=== PATIENT | male | born 1945 | race Caucasian/White ===

== ENCOUNTER 2018-06-29 12:15 | Inpatient (IN) | payer OTHER, BC ==
--- NOTE | 2018-06-29 12:46 | EDPHY ---
H & P Stated Complaint: SOB for 1.5 weak with intermittent CP Time Seen by Provider: 06/29/18 12:40 - Medical/Surgical History Hx Asthma: No Hx Chronic Respiratory Disease: No Hx Diabetes: No Hx Cardiac Disease: Yes Hx Renal Disease: No Hx Cirrhosis: No Hx Alcoholism: No Hx HIV/AIDS: No Hx Splenectomy or Spleen Trauma: No Other PMH: DM, hyperlipidemia, CAD - Social History Smoking Status: Never smoked Constitutional: Initial Vital Signs Temperature (C) 36.6 C 06/29/18 12:19 Heart Rate 84 06/29/18 12:19 Respiratory Rate 18 06/29/18 12:19 Blood Pressure 146/72 H 06/29/18 12:19 O2 Sat (%) 95 06/29/18 12:19 O2 Delivery Mode Room Air Allergies/Adverse Reactions: Sulfa (Sulfonamide Antibiotics) Allergy (Verified 06/29/18 12:18) tetracycline [Tetracycline] Allergy (Verified 06/29/18 12:18) contrast Allergy (Uncoded 11/16/13 09:02) Home Medications: Medication Instructions Recorded AMOXICILLIN 06/29/18 Atorvastatin Calcium 06/29/18 Insulin Regular, Human 06/29/18 Quinapril HCl 06/29/18 Medical Decision Making - Diagnostics Imaging Results: Imaging Impressions Chest X-Ray 06/29/18 12:49 Impression: Features most suggestive of congestive heart failure with cardiogenic pulmonary edema. Imaging: I viewed and interpreted images myself ED Course/Re-evaluation: CHIEF COMPLAINT: Dyspnea HISTORY OF PRESENT ILLNESS: This patient is a 72 year old male with history of CAD, hyperlipidemia, and diabetes mellitus who has undergone prior cardiac catheterization in 2013. He complains of 10 days of worsening dyspnea with exertion. He is generally very active and goes jogging daily. Over the past 10 days, he states he cannot even walk without having to sit and recover, which is very unusual for him. He endorses "pushback" from his body when he tries to exert himself even mildly. He denies any sharp chest pains and is unable to articulate exactly what he means by "pushback", but does admit this is a sensation of discomfort, particularly in his chest. Last night, he had difficulty sleeping due to his dyspnea and discomfort, and he was diaphoretic at that time. He endorses history of non-obstructive coronary artery disease and underwent cardiac catheterization in November,, with Dr. Prasad, survey engineer. He did not have any stents placed at that time. The patient is currently symptom free and denies any shortness of breath or chest discomfort. No fever, nausea, headache, diarrhea, urinary complaints, or other associated symptoms. REVIEW OF SYSTEMS: A comprehensive 10 system review of systems is otherwise negative aside from elements mentioned in the history of present illness and medical decision making. PHYSICAL EXAM: HR, BP, O2 Sat, RR. Temp noted General Appearance: Alert, well hydrated, appropriate, and non-toxic appearing. Head: Atraumatic without scalp tenderness or obvious injury Eyes: Pupils equal, round, reactive to light and accommodation, EOMI, no trauma , no injection. Ears: Clear bilaterally, no perforation, normal landmarks Nose: Atraumatic, no rhinorrhea, clear. Throat: There is no erythema or exudates, no lesions, normal tonsils, mucus membranes moist. Neck: Supple, nontender, no lymphadenopathy. Respiratory: No retractions, no distress, no wheezes, and no accessory muscle use. Lungs are clear to auscultation bilaterally. Cardiovascular: Regular rate and rhythm, no murmurs, rubs, or gallops. Bilateral carotid, radial, dorsalis pedis, and posterior tibial pulses intact. Good capillary refill all extremities. Gastrointestinal: Abdomen is soft, nontender, non-distended. Musculoskeletal: Normal active ROM of all extremities, atraumatic. Neurological: Alert, appropriate, and interactive. Nonfocal neuro exam. Skin: No rashes, good turgor, no nodules on palpation. Past medical history: CAD s/p cardiac catheterization. Hyperlipidemia. Diabetes mellitus. Chronotropic incompetence. Past surgical history: Cardiac catheterization 11/2013, no stents placed. Family history: Noncontributory. Social history: . Lives in [place]. Retired. 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 DIAGNOSTICS/PROCEDURES/CRITICAL CARE TIME: The 12 lead EKG was interpreted by myself. Sinus rhythm. ST elevation in V3-V4, inverted T waves. See hard copy and/or "tracemaster" electronic copy for interpretation. DIFFERENTIAL DIAGNOSIS: The differential diagnosis for the patient's chest pain included but was not limited to myocardial ischemia, pulmonary embolus, chest wall pain, pleural inflammation, and pulmonary infectious causes. MEDICAL DECISION MAKING: This patient is a 72 y/o male with history of CAD, hyperlipidemia, and diabetes mellitus who presents with 10 day history of worsening exertional shortness of breath. He endorses an associated sensation of "pushback" in his body and particularly his chest, but he is reticent to describe this as "pain". Bedside EKG completed on arrival. 12:41 Reviewed bedside EKG. See interpretation above, evidence of ST elevation representing possible acute injury. Plan for labs including CBC, chemistries, troponin, d-dimer. Plan for chest x-ray. 12:47 Patient's history is suspicious for unstable angina, EKG shows evidence of possible ischemia. Plan to consult with cardiology. POC troponin pending. No old EKG is available in our system so we will request prior records from the [facility]. Plan to administer 324mg PO ASA. 12:50 Reviewed prior EKG from 11/16/2013. EKG is significantly changed from this. 13:04 POC Troponin elevated at 3.16. Plan to consult with survey engineer semiconductor packages sealer. As patient is currently completely asymptomatic, he does not meet criteria for a cardiac alert, but I suspect that we will consult with interventional cardiology as well following our initial cardiology consult. 13:[address] Mars, survey engineer. 13:11 Dr. Sevilla, data collection technician, is present in the emergency department. He will evaluate the patient now. He has reviewed the patient's EKG and agrees there is evidence of acute injury. 13:20 Reviewed chest x-ray. Evidence of possible CHF vs. cardiogenic pulmonary edema. Radiologist report concurs. Reviewed remaining laboratory studies. D-dimer, BNP elevated. 13:25 Dr. Sevilla with take the patient to the production laborer at this time. - Data Points Laboratory Results: Laboratory Results 06/29/18 12:50 06/29/18 12:50 06/29/18 06/29/18 06/29/18 12:55 12:50 12:50 WBC RBC Hgb Hct MCV MCH MCHC RDW Plt Count MPV Neut % (Auto) Lymph % (Auto) [place] % (Auto) Eos % (Auto) Baso % (Auto) Nucleat RBC Rel Count Absolute Neuts (auto) Absolute Lymphs (auto) Absolute Monos (auto) Absolute Eos (auto) Absolute Basos (auto) Absolute Nucleated RBC Immature Gran % Immature Gran # D-Dimer 2.65 ug/mLFEU H ug/mLFEU (0.00-0.50) Sodium 134 mEq/L L mEq/L (135-145) Potassium 5.3 mEq/L H mEq/L (3.3-5.0) Chloride 102 mEq/L mEq/L (97-110) Carbon Dioxide 26 mEq/l mEq/l (22-31) Anion Gap 6 mEq/L L mEq/L (8-16) BUN 24 mg/dL H mg/dL (7-23) Creatinine 0.9 mg/dL mg/dL (0.7-1.3) Estimated GFR > 60 Glucose 187 mg/dL H mg/dL (70-100) Calcium 8.3 mg/dL L mg/dL (8.5-10.4) POC Troponin I 3.16 ng/mL H ng/mL (0.00-0.08) NT-Pro-B Natriuret Pep 3790 pg/mL H pg/mL (0-125) 06/29/18 12:50 WBC 4.83 10^3/uL 10^3/uL (3.80-9.50) RBC 3.84 10^6/uL L 10^6/uL (4.40-6.38) Hgb 12.2 g/dL L g/dL (13.7-17.5) Hct 36.3 % L % (40.0-51.0) MCV 94.5 fL fL (81.5-99.8) MCH 31.8 pg pg (27.9-34.1) MCHC 33.6 g/dL g/dL (32.4-36.7) RDW 12.6 % % (11.5-15.2) Plt Count 272 10^3/uL 10^3/uL (150-400) MPV 11.1 fL fL (8.7-11.7) Neut % (Auto) 62.9 % % (39.3-74.2) Lymph % (Auto) 22.4 % % (15.0-45.0) [place] % (Auto) 11.4 % % (4.5-13.0) Eos % (Auto) 2.5 % % (0.6-7.6) Baso % (Auto) 0.4 % % (0.3-1.7) Nucleat RBC Rel Count 0.0 % % (0.0-0.2) Absolute Neuts (auto) 3.04 10^3/uL 10^3/uL (1.70-6.50) Absolute Lymphs (auto) 1.08 10^3/uL 10^3/uL (1.00-3.00) Absolute Monos (auto) 0.55 10^3/uL 10^3/uL (0.30-0.80) Absolute Eos (auto) 0.12 10^3/uL 10^3/uL (0.03-0.40) Absolute Basos (auto) 0.02 10^3/uL 10^3/uL (0.02-0.10) Absolute Nucleated RBC 0.00 10^3/uL 10^3/uL (0-0.01) Immature Gran % 0.4 % % (0.0-1.1) Immature Gran # 0.02 10^3/uL 10^3/uL (0.00-0.10) D-Dimer Sodium Potassium Chloride Carbon Dioxide Anion Gap BUN Creatinine Estimated GFR Glucose Calcium POC Troponin I NT-Pro-B Natriuret Pep Medications Given: Discontinued Medications Aspirin (Aspirin) 324 mg PO EDNOW ONE Stop: 06/29/18 12:50 Last Admin: 06/29/18 12:59 Dose: 324 mg Point of Care Test Results: Chemistry 06/29/18 12:55 POC Troponin I 3.16 ng/mL H ng/mL (0.00-0.08) Departure - Departure Disposition: [facility] Inpatient Acute Clinical Impression: Acute coronary syndrome STEMI (ST elevation myocardial infarction) Qualifiers: Involved coronary artery: unspecified coronary artery Qualified Code(s): I21.3 - ST elevation (STEMI) myocardial infarction of unspecified site Dyspnea Qualifiers: Dyspnea type: dyspnea on exertion Qualified Code(s): R06.09 - Other forms of dyspnea Condition: Fair Referrals: Ildefonso Rodriguez MD [Primary Care Provider] - As per Instructions Kris Mars MD [Medical Doctor] - As per Instructions Report Scribed for: Wilmar Albrecht Report Scribed by: Adriana Mccarthy Date of Report: 06/29/18 Time of Report: 13:28
[2018-06-29] MEDS ORDERED: ASPIRIN 81 MG CHEWABLE TAB PO ONE (12:49)
[2018-06-29 12:59] LABS: PLATELET COUNT 272 10^3/uL (150-400)
[2018-06-29] MEDS ORDERED: LIDOCAINE 1% 300 MG/30 ML SDV ONE (13:21)
[2018-06-29] MEDS ORDERED: fentaNYL 100 MCG/2 ML INJ ONE (13:22)
[2018-06-29] MEDS ORDERED: MIDAZOLAM 2 MG/2 ML VIAL ONE (13:22)
[2018-06-29] MEDS ORDERED: methylPREDNISolone SOD SUCC 125 MG/2 ML VIAL ONE (13:22)
[2018-06-29] MEDS ORDERED: IOPAMIDOL (ISOVUE-370) 150 ML BTL IV ONE ×2 (13:23→15:32)
[2018-06-29] MEDS ORDERED: FAMOTIDINE 20 MG/NACL/50 ML BAG IV ONE (13:23)
[2018-06-29] MEDS ORDERED: EPINEPHrine 1 MG/10 ML SYR IVP ONE (13:23)
[2018-06-29] MEDS ORDERED: NITROGLYCERIN 1,500 MCG/15 ML VIAL MISC ONE (14:03)
[2018-06-29] MEDS ORDERED: BIVALIRUDIN 250 MG/5 ML VIAL IV ONE (14:22)
--- NOTE | 2018-06-29 14:31 | CPEKG ---
Test Reason : OPEN Blood Pressure : / mmHG Vent. Rate : 078 BPM Atrial Rate : 078 BPM P-R Int : 173 ms QRS Dur : 082 ms QT Int : 377 ms P-R-T Axes : 027 -09 083 degrees QTc Int : 430 ms Sinus rhythm Left atrial enlargement Anteroseptal infarct Lateral leads are also involved Confirmed by Wilmar Albrecht ([id number]), multimedia editor Nemesio Helms ([id number]) on 06/29/2018 2:30:20 PM Referred By: Confirmed By:Wilmar Albrecht
--- NOTE | 2018-06-29 14:52 | PDPROPOC ---
Sedation Plan of Care Sedation Plan of Care: vital signs stable, mental status noted, patient educated of risks, benefits, alternatives, patient can tolerate sedation ASA Classification: ASA 4 Planned drugs: fentanyl, midazolam Mallampati Score: Class 2 Mallampati Reference Image: Patient passed 3-3-2 rule?: Yes
--- NOTE | 2018-06-29 14:52 | PDDXCAT ---
Diagnostic Cath Note - . Date: 06/29/18 Blue Line Operator: Roel Indication: CCC Class III and IV angina on medical treatment - Procedure Access: right groin Procedure: left heart catheterization Patient Problems: Problems Problem Status Onset Acute coronary syndrome Acute Dyspnea Acute STEMI (ST elevation myocardial infarction) Acute
--- NOTE | 2018-06-29 14:53 | PDHPUP ---
History & Physical Update H&P update statement: This history and physical update is based on an assessment of the patient which was completed after admission or registration (within 24 hours), but prior to the surgery/procedure. H&P update: H&P reviewed & patient examined (pt with recent [place] 7-10 days ago ), no change in patient's condition since H&P completed
--- NOTE | 2018-06-29 14:59 | PDDXCAT ---
Diagnostic Cath Note - . Date: 06/29/18 Teletypist: Roel Indication: CCC Class III and IV angina on medical treatment - Procedure Access: right groin Procedure: left heart catheterization - Materials Left Heart Cath size: 7F Left Heart Cath materials: JL4.0, JR4.0, pigtail - Findings-Left Heart Catheterization LM: 6mm in size. Bifurcated into LAD and circumflex system. SÁNCHEZ III flow throughout. LAD: 3.25mm in size. There was a 99% occlusion in the Proximal LAD. SÁNCHEZ I flow to the distal vessel. The first diagonal branch serves as the functional ramus vessel. Has a 15mm long 70% obstruction near its take off from the LAD. Downstream from the 99% obstruction is hazineess and a filling defect consistent with thrombus. LCX: 3.5mm in size and is the dominant vessel. Ostial circumflex has 40% stenosis. RCA: 2.0mm in size and is the nondominant vessel. There is a 30% obstruction near its takepff at the right cornoary cusp. EDP: 35mmHg LVEF: 25% Wall motion: There is distal anterior wall and apical hypokinesis which is severe. The inferior wall and base of the anterior wall contracts relatively normally. Cannot rule out apical thrombus. - Findings-Right Heart Catheterization AO: 127/64/93 Complications: NONE Estimated blood loss: <50ml Closure method: Angioseal Assessment: Severe [place] vessel coronary disease with severe obstruction of the LAD and thrombus consistent with recent anterior and anteroapical NC. Markedly elevated LVEDP with severe anterior apical hypokinesis consistent with recent myocardial injury. Plan: Duel antiplatelet therapy with Aspirin 325mg for the first month and Aspirin 81mg and Effient should be continued for at least 1 year following drug eluting stent implantation. No elective surgery for the first 3 months. Decisions to stop dual antiplatelet therapy before 1 year should involve our office [facility]. Intervention: A 7 Romansh JR4 guiding catheter was used for guide catheter support. A 0.014" Intuition Wire was advanced across the lesion in the proximal LAD and was stented with a 3.0 x 32mm Synergy drug eluting stent. 3.25 x 15mm Emerge balloon NC balloon was used to post dilate the proximal stent. There was no residual stenosis 0% post stent implantation with improvement in flow from SÁNCHEZ I to SÁNCHEZ III flow post stent implantation. An intraortic balloon pump was then inserted and placed at the descending portion of the thoracic aorta just distal the to left subclavian takeoff and was noted to be augmenting properly. Patient Problems: Problems Problem Status Onset Acute coronary syndrome Acute Dyspnea Acute STEMI (ST elevation myocardial infarction) Acute
[2018-06-29] MEDS ORDERED: ABCIXIMAB 10 MG/5 ML VIAL ONE ×2 (15:23→15:46)
[2018-06-29] MEDS ORDERED: HEPARIN 10,000 UNIT/10 ML MDV (1,000 UNIT/ML) ONE (15:48)
[2018-06-29] MEDS ORDERED: PRASUGREL HCL 10 MG TAB ONE (16:05)
[2018-06-29] MEDS ORDERED: HYDROCODONE/APAP 5/325 TAB PO PRN (16:16)
[2018-06-29] MEDS ORDERED: LORazepam 2 MG/ML INJ IVP PRN (16:16)
[2018-06-29] MEDS ORDERED: PRASUGREL HCL 10 MG TAB PO ONE (16:16)
[2018-06-29] MEDS ORDERED: NITROGLYCERIN 0.4 MG BTL SL PRN (16:16)
[2018-06-29] MEDS ORDERED: ATROPINE SULFATE 1 MG/10 ML SYR IVP PRN (16:16)
[2018-06-29] MEDS ORDERED: NS 1,000 ML IV SCH (16:30)
[2018-06-29] MEDS: CARVEDILOL 3.125 MG TAB PO SCH (18:18)
[2018-06-29] MEDS ORDERED: HEPARIN/DEXTROSE 500 ML IV SCH (19:45)
[2018-06-29] MEDS ORDERED: HEPARIN 10,000 UNIT/10 ML MDV (1,000 UNIT/ML) IVP PRN (19:45)
[2018-06-29] MEDS ORDERED: D50W 25 GM/50 ML SYR IVP PRN (19:52)
[2018-06-29] MEDS: AMOX/CLAVULANATE 500/125 MG TAB PO SCH (20:29)
[2018-06-29] MEDS: INSULIN REGULAR, HUMAN 100 UNIT/1 ML VIAL STANDARD SC SCH (20:40)
[2018-06-29] MEDS ORDERED: INSULIN GLARGINE 100 UNITS/ML SYRINGE SC SCH (21:00)
[2018-06-29] MEDS: TEMAZEPAM 15 MG CAP PO PRN (22:42)
[2018-06-30 03:03] LABS: PLATELET COUNT 260 10^3/uL (150-400)
[2018-06-30] MEDS: ACETAMINOPHEN 325 MG TAB PO PRN ×2 (03:08→13:41)
[2018-06-30] MEDS: AMOX/CLAVULANATE 500/125 MG TAB PO SCH ×3 (06:23→20:45)
[2018-06-30] MEDS ORDERED: INSULIN GLARGINE 100 UNITS/ML UNIT SC ONE (07:45)
[2018-06-30] MEDS ORDERED: INSULIN LISPRO 100 UNIT/ML SC ONE ×4 (07:45→18:15)
[2018-06-30] MEDS: INSULIN REGULAR, HUMAN 100 UNIT/1 ML VIAL STANDARD SC SCH ×2 (07:56→12:21)
[2018-06-30] MEDS ORDERED: PERFLUTREN LIPID MICROSPHERES 1.1 MG/ML VIAL IV ONE (09:13)
[2018-06-30] MEDS: ASPIRIN EC 325 MG TAB PO SCH (10:10)
[2018-06-30] MEDS: PRASUGREL HCL 10 MG TAB PO SCH (10:10)
[2018-06-30] MEDS: ROSUVASTATIN CALCIUM 20 MG TAB PO SCH (10:10)
[2018-06-30] MEDS: CARVEDILOL 3.125 MG TAB PO SCH ×2 (10:37→17:51)
[2018-06-30] MEDS: LISINOPRIL 5 MG TAB PO SCH (11:57)
[2018-06-30] MEDS: EPLERENONE 25 MG TAB PO SCH (11:58)
--- NOTE | 2018-06-30 13:17 | GCON ---
CRITICAL CARE CONSULTATION DATE OF CONSULTATION: 06/30/2018 REASON FOR CONSULTATION: Intensive care unit evaluation and medical management following myocardial infarction with cardiogenic shock. HISTORY: The patient is a very pleasant 72-year-old with known coronary artery disease. He had a ca theterization in 2013, but disease was nonobstructive and he did not require stenting. Over the last week or so, he has had increasing shortness of breath, dyspnea on exertion, and chest discomfort. T his was more significant yesterday. He drove himself to the emergency department. He was evaluated by Cardiology and taken urgently to the denture laboratory technician by Dr. Sevilla. He had obstructive disease in a numb er of vessels including the LAD. Stenting of the proximal LAD was accomplished. Severe anteroapical hypokinesis was present with an ejection fraction of 25%. An intra-aortic balloon pump was placed. The patient was returned to the intensive care unit in stable condition on the balloon pump at 1:1. He has remained stable on the balloon pump overnight. He complains of some back pain, no chest pain, no shortness of breath. Oxygen is in place at 4 L. PAST MEDICAL HISTORY: Remarkable for insulin requiring diabetes mellitus and coronary artery disease . There is a history of hyperlipidemia and systemic hypertension. HOME MEDICATIONS: Baby aspirin, Augmentin recently, Lipitor, Accupril, and insulin, both NovoLog and Lantus. He adjusts his insulin based on glucose readings. 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 Si gnificant alcohol is negative. FAMILY HISTORY: Noncontributory at this time. REVIEW OF SYSTEMS: A 10-point review of systems is negative except as mentioned above. PHYSICAL EXAMINATION: GENERAL: Reveals a pleasant gentleman who is lying flat on his back in the in tensive care unit. Intra-aortic balloon pump is in place at 1:1. Oxygen is in place by nasal cannul a at 4 L. Blood pressure is 115/45, heart rate 80 with sinus rhythm on the monitor. Respiratory rat e is 24. On 4 L oxygen saturations are 98%. He is afebrile. HEENT: Unremarkable for lymphadenopat hy or thyromegaly. Jugular venous distention does not appear to be present. CHEST: Clear bilateral ly. Breath sounds and excursions are both excellent. HEART: Regular in rate and rhythm. The ballo on pump is present 1:1, however, peripheral pulse indicates that augmentation is 2 times this. Ballo on pump noise is present. A gallop cannot be appreciated. ABDOMEN: Soft, nontender. Bowel sounds are present. A Downs catheter is in place. Residuals were quite large prior to its placement. Urin e output is excellent. EXTREMITIES: Unremarkable for edema, cords, or tenderness. Lower extremity perfusion is intact bilaterally. NEUROLOGIC: Examination is within normal limits. LABORATORY DATA: White blood cell count is 5600, hematocrit 33.9, platelets are 260,000. Unfraction ated heparin is 0.81. Sodium is 133, potassium 4.3, BUN 23 with a creatinine of 0.9. Glucose is 213 . Calcium is 7.9. LFTs are within normal limits. Troponin is 2.36 this morning. BNP is 4200, albu min 2.3. ASSESSMENT: 1. Acute myocardial infarction associated with cardiogenic shock. He had 99% occlusion of the LAD. This was successfully stented. Intra-aortic balloon pump support is being required. He is on anti- platelet agents including aspirin, Effient and heparin drip. He is on low-dose lisinopril as well as carvedilol. He is doing well. Cardiac echo is being performed. 2. Insulin-dependent diabetes mellitus. He is on NovoLog and Lantus at home. These will be continu ed per his usual doses. 3. History of systemic hypertension and hyperlipidemia. 4. Deep venous thrombosis prophylaxis: On heparin and anti-platelet agents. 5. Gastrointestinal prophylaxis: None indicated, eating. PLAN AND RECOMMENDATIONS: Supportive care will be maintained in the intensive care unit. Intraaorti c balloon pump will be continued and weaned eventually per instructions from Cardiology. Antiplatele t agents and systemic anticoagulation will be continued. Insulin will be given per the patient's u al home regimen. Other routine medications that he came in on will be continued, including amoxicill in. Further plans and recommendations will be made based on his progress over the next 12-24 hours. /[id number]/MODL
[2018-06-30] MEDS: OXYCODONE/APAP 5/325 TAB PO PRN ×2 (14:29→23:37)
--- NOTE | 2018-06-30 14:55 | PDMN ---
Medical Necessity Medical necessity: MCG M230 SD: 72 yo with acute SD (STEMI), taken to phlebotomist medical lab assistant, on balloon pump
--- NOTE | 2018-06-30 15:17 | ECHO ---
[email or web address] [address] [address] Main: [phone] Fax: Transthoracic Echocardiogram Name: OMARI ANDERSON MR#: [id number] Study Date: 06/30/2018 Study Time: 09:39 AM Date of : 1945 Age: 72 year(s) Height: 182.9 cm (72 in.) Weight: 78.02 kg (172 lb.) BSA: 2 m2 Gender: Male Examination: Echo with Definity Indication: definity to rule out apical clot Image Quality: Technically Difficult Contrast: 0.330 mg I.V. dose of Definity was administered to improve endocardial border definition. Requested by: Filiberto Sevilla BP: 106 mmHg/39 mmHg Heart Rate: Rhythm: Indication: definity to rule out apical clot Procedure Staff Fur Grader: Jazzy Montoya [facility] [[email or web address]] Reading Physician: Filiberto Sevilla MD Requesting Provider: Conclusions: Grossly normal LV size by volume with mild to moderately reduced LV function. Large apical hypokinesis extending to distal anterior wall. Definity used to rule out apical thrombus. No large apical thrombus noted however in the apical 2 chamber it is difficult to definitively rule out. Estimated ejection fraction 40-45% on balloon pump. RV best visualized in the subcostal views. Normal size and function in these limited views. There is mild thickening of the mitral valve leaflets. There is no significant mitral valve regurgitation. No mitral stenosis is present. Aortic valve is not well visualized. Aortic sclerosis is present. There is no aortic valve regurgitation. No aortic valve stenosis is present. Tricuspid valve not visualized. There is no significant tricuspid valve regurgitation. Pulmonary valve not well visualized. No pericardial effusion. These findings are consistent with a relatively extensive anteroapical myocardial infarction. Consider anticoagulation for the first 6 months post CO and reassess to help decrease the risk of apical thrombus. Measurements: Chambers Valvular Assessment AV/MV Valvular Assessment TV/PV Normal Normal Normal Name Value Range Name Value Range Name Value Range LVEF (BP): 44 % (>=55 %) AV Vmax: 0.96 m/s (1 m/s-1.7 m/s) AV maxP mmHg ( - ) Patient: OMARI ANDERSON Study Date: 06/30/2018 Page 1 of 2 09:39 AM LVOT Vmax: 1.00 m/s (0.7 m/s-1.1 m/s) MV E Vmax: 1.02 m/s ( - ) MV A Vmax: 1.02 m/s ( - ) MV E/A: 1.00 ( - ) Continued Measurements: Valvular Assessment AV/MV Name Value MV DecTime: 116 m/s Findings: Left Ventricle: Grossly normal LV size by volume with mild to moderately reduced LV function. Large apical hypokinesis extending to distal anterior wall. Definity used to rule out apical thrombus. No large apical thrombus noted however in the apical 2 chamber it is difficult to definitively rule out. Estimated ejection fraction 40-45% on balloon pump. Right Ventricle: RV best visualized in the subcostal views. Normal size and function in these limited views. Mitral Valve: There is mild thickening of the mitral valve leaflets. There is no significant mitral valve regurgitation. No mitral stenosis is present. Aortic Valve: Aortic valve is not well visualized. Aortic sclerosis is present. There is no aortic valve regurgitation. No aortic valve stenosis is present. Tricuspid Valve: Tricuspid valve not visualized. There is no significant tricuspid valve regurgitation. Pulmonic Valve: Pulmonary valve not well visualized. Pericardium: No pericardial effusion. (No Signature Object) Patient: OMARI ANDERSON Study Date: 06/30/2018 Page 2 of 2 09:39 AM [id number]
--- NOTE | 2018-06-30 15:41 | ASMTCMCOM ---
CM Note CM Note Notes: 72yr old male admitted for an acute OR. He has a Hx of ACS, CAD, Dyspnea, HTN, DM-1, forner smoker. Patient went to the labor contractor found to have occluded LAD . Patient was stented and on the bolloon pump. Lives with his . CM to follow, may not have discharge needs. Date Signed: 06/30/2018 03:40 PM Electronically Signed By:Elida Nevarez LCSW
[2018-06-30] MEDS: INSULIN LISPRO 100 UNIT/ML SC SCH (17:45)
[2018-06-30] MEDS: ONDANSETRON 4 MG/2 ML VIAL IVP PRN (19:13)
--- NOTE | 2018-06-30 19:15 | PDCARPN ---
Cardiology Progress Note Chief Complaint: I feel a little bored lying here and my back hurts. Assessment/Plan: Assessment:1.status post recent anterior lateral and apical myocardial infarction with late presentation. The patient probably had an anterior MD 7-10 days ago while on the train from [place]. He had a delayed presentation and finally presented for ongoing fatigue. He underwent successful balloon angioplasty and stent implantation to the LAD. He is currently on intraaortic balloon support on 1:1. The patient has been started on beta mitch, aldosterone antagonist to help reduce negative remodeling. He does have serologic evidence of heart failure on the basis of a BMP which was over 4000, his troponin continues to trend down. Plan to ween the patient off his intraaortic balloon pump and the heparin drip will be held. Removal of the Balloon pump is intended if the ween is tolerated. 2. Diabetes Mellitus will be treated under the care of the data engineer. 3. No evidence of apical thrombus on echo. Plan for full dose anticoagulation once the balloon pump has been removed. Plan:I would like the patient to be on full dose anticoagulation following the IABP wean. 06/30/18 19:05 06/30/18 19:16 Reviewed/Discussed With: family Time Spent with Patient: greater than 25 minutes Time Spent with Patient: Greater than 25 minutes spent on this patients care, greater than 50% of time spent counseling, educating, and coordinating care regarding the above mentioned plan. Objective: Vital Signs (8 Hrs) Pulse Resp BP Pulse Ox 06/30/18 17:54 73 123/69 H 06/30/18 17:51 69 127/44 H 06/30/18 16:21 68 18 118/40 L 100 06/30/18 16:00 68 18 122/36 H 95 06/30/18 15:00 67 22 H 126/53 H 100 Intake/Output (24 Hrs) 06/29/18 06/30/18 07/01/18 05:59 05:59 05:59 Intake Total 2461 Output Total 900 Balance 1561 Intake: Oral (ml) 950 IV Intake (ml) 753 IV Infused (ml) 758 Heparin/Dextrose 500 ml @ 758 Per Protocol IV CONT ELINA Rx#:[id number] Output: Urine (ml) 900 Catheter 900 Result Diagrams: 06/30/18 02:50 06/30/18 08:45 - Physical Exam Constitutional: WDWN, no apparent distress Eyes: PERRL, anicteric sclera Ears, Nose, Mouth, Throat: moist mucous membranes Cardiovascular: regular rate and rhythm, systolic murmur Respiratory: clear to auscultate bilat, No expiratory wheeze, No inspiratory crackles Gastrointestinal: normoactive bowel sounds Genitourinary: no suprapubic tenderness Skin: no rashes, warm, other (nosignificant hematoma or bruising at IABP insertion site.) Psychiatric: cooperative, interactive, following commands - . Pending Discharge Within 24 Hours: No Pending Discharge Within 48 Hours: No ICD10 Worksheet Patient Problems: Problems Problem Status Onset Acute coronary syndrome Acute Dyspnea Acute STEMI (ST elevation myocardial infarction) Acute
[2018-06-30] MEDS: INSULIN GLARGINE 100 UNITS/ML SYRINGE SC SCH (19:16)
[2018-06-30] MEDS: INSULIN GLARGINE 100 UNITS/ML UNIT SC SCH (20:45)
[2018-06-30] MEDS: TEMAZEPAM 15 MG CAP PO PRN (20:45)
[2018-07-01] MEDS ORDERED: CANN-EASE 2 GM TUBE TP ONE (02:22)
[2018-07-01] MEDS: INSULIN GLARGINE 100 UNITS/ML SYRINGE SC SCH (06:07)
[2018-07-01] MEDS: AMOX/CLAVULANATE 500/125 MG TAB PO SCH ×3 (06:07→21:45)
[2018-07-01] MEDS: OXYCODONE/APAP 5/325 TAB PO PRN (07:32)
[2018-07-01] MEDS: CARVEDILOL 3.125 MG TAB PO SCH ×2 (07:34→19:03)
[2018-07-01] MEDS: INSULIN LISPRO 100 UNIT/ML SC SCH ×3 (07:35→19:26)
[2018-07-01] MEDS: ROSUVASTATIN CALCIUM 20 MG TAB PO SCH (09:06)
[2018-07-01] MEDS: EPLERENONE 25 MG TAB PO SCH (09:06)
[2018-07-01] MEDS: LISINOPRIL 5 MG TAB PO SCH (09:07)
[2018-07-01] MEDS: ASPIRIN EC 325 MG TAB PO SCH (09:08)
[2018-07-01] MEDS: PRASUGREL HCL 10 MG TAB PO SCH (09:09)
[2018-07-01] MEDS ORDERED: LIDOCAINE 1% 300 MG/30 ML SDV ONE (09:55)
[2018-07-01] MEDS ORDERED: MIDAZOLAM 2 MG/2 ML VIAL ONE (09:56)
[2018-07-01] MEDS ORDERED: LIDOCAINE 1% 300 MG/30 ML SDV MISC ONE (10:15)
[2018-07-01] MEDS ORDERED: MIDAZOLAM 2 MG/2 ML VIAL IVP ONE ×2 (10:15)
--- NOTE | 2018-07-01 11:56 | CPEKG ---
Test Reason : OPEN Blood Pressure : / mmHG Vent. Rate : 080 BPM Atrial Rate : 080 BPM P-R Int : 180 ms QRS Dur : 083 ms QT Int : 381 ms P-R-T Axes : 037 -02 091 degrees QTc Int : 440 ms Sinus rhythm Probable left atrial enlargement Anteroseptal infarct, age indeterminate Minimal ST elevation, inferior leads Confirmed by Mike Gomez ([id number]) on 07/01/2018 11:56:15 AM Referred By: Confirmed By:Mike Gomez
--- NOTE | 2018-07-01 13:20 | PDINTPN ---
Billing Assistant Progress Note Assessment/Plan: Assessment: Status post anterior wall myocardial infarction, cardiogenic shock. Improved. Intra-aortic balloon pump removed today. Echo yesterday estimated ejection fraction to possibly be 45%, up from 25% on admission. On carvedilol, lisinopril, aspirin, Effient, and IV heparin. Insulin-dependent diabetes: Doing well. He is on NovoLog and Lantus based on what he would take at home. Glucoses acceptable History of hypertension, hyperlipidemia: Stable GI prophylaxis: Eating Pain control: Adequate. Will improve post IABP removal and he can be mobilized later today. Metabolic: Mild hyponatremia at 132, hyperkalemia at 5.5. Renal function normal. If potassium continues to climb will stop Inspra. Will follow Plan: Continue care in the intensive care unit. Continue cardiac medications as above. Bed rest until about 6 hr after IABP pulled, then began to mobilize. Continue insulin comma dosing per patient. Follow laboratory this afternoon and in a.m.. 30 min of critical care time spent with the patient. Discussed with Cardiology , nursing, and the ICU multi disciplinary team. Subjective: Sedated secondary to Versed for IABP removal. No specific complaints. Objective: Vital Signs Temp Pulse Resp BP Pulse Ox 36.6 C 69 22 H 110/53 L 94 07/01/18 07:00 07/01/18 11:00 07/01/18 11:00 07/01/18 11:00 07/01/18 11:00 Laboratory Results 07/01/18 05:10 07/01/18 05:10 06/30/18 07/01/18 07/02/18 05:59 05:59 05:59 Intake Total 3773 Output Total 1640 Balance 2133 Physical Exam - Physical Exam General Appearance: no apparent distress, other (Sleepy, arouses, responsive) EENT: PERRL/EOMI, other (Nasal cannula in place at 3-4 L) Neck: normal inspection (No obvious JVD) Respiratory: lungs clear, decreased breath sounds (At bases) Cardiac/Chest: regular rate, rhythm Abdomen: normal bowel sounds, non-tender, soft Male Genitalia: other (Downs catheter in place, good urine output) Skin: normal color, warm/dry Extremities: No pedal edema Neuro/Psych: no motor/sensory deficits, No cognition abnormalities ICD10 Worksheet Patient Problems: Problems Problem Status Onset Acute coronary syndrome Acute STEMI (ST elevation myocardial infarction) Acute Dyspnea Acute
[2018-07-01] MEDS: ONDANSETRON 4 MG/2 ML VIAL IVP PRN (20:26)
[2018-07-01] MEDS: INSULIN GLARGINE 100 UNITS/ML UNIT SC SCH (21:05)
[2018-07-02] MEDS: AMOX/CLAVULANATE 500/125 MG TAB PO SCH ×3 (05:32→22:25)
[2018-07-02] MEDS: ASPIRIN EC 325 MG TAB PO SCH (08:06)
[2018-07-02] MEDS: PRASUGREL HCL 10 MG TAB PO SCH (08:06)
[2018-07-02] MEDS: INSULIN LISPRO 100 UNIT/ML SC SCH ×4 (08:06→18:22)
[2018-07-02] MEDS: CARVEDILOL 3.125 MG TAB PO SCH ×2 (08:06→18:20)
[2018-07-02] MEDS: INSULIN GLARGINE 100 UNITS/ML SYRINGE SC SCH (08:06)
[2018-07-02] MEDS: LISINOPRIL 5 MG TAB PO SCH (08:07)
[2018-07-02] MEDS: ROSUVASTATIN CALCIUM 20 MG TAB PO SCH (08:07)
[2018-07-02] MEDS: EPLERENONE 25 MG TAB PO SCH (08:07)
--- NOTE | 2018-07-02 11:34 | ASMTCMCOM ---
CM Note CM Note Notes: No therapies ordered for patient. Patient to d/c independently. CM available should d/c needs arise. Date Signed: 07/02/2018 11:33 AM Electronically Signed By:Vidhya Ward LCSW
--- NOTE | 2018-07-02 13:33 | PDINTPN ---
Motor Runner Progress Note Assessment/Plan: Assessment: Status post anterior wall myocardial infarction, cardiogenic shock. Improved. Intra-aortic balloon pump removed 07/01. Follow-up Echo estimated ejection fraction to possibly be 45%, up from 25% on admission. On carvedilol, lisinopril, aspirin, Effient. Insulin-dependent diabetes: Doing well. He is on NovoLog and Lantus based on what he would take at home. Glucoses acceptable History of hypertension, hyperlipidemia: Stable GI prophylaxis: Eating Pain control: Doing well. Much more comfortable now. Metabolic: Mild hyponatremia at 131, hyperkalemia at 5.5. Renal function normal. Will stop Inspra. Plan: Continue care. Continue cardiac medications as above. Hold Inspra. Follow electrolytes. Can transfer to PCU if okay with Cardiology 25 min of critical care time spent with the patient. Subjective: Doing well. Feels better. Up ambulating. Denies chest pain. Objective: Vital Signs Temp Pulse Resp BP Pulse Ox 36.7 C 66 17 104/69 90 L 07/02/18 13:05 07/02/18 13:05 07/02/18 13:05 07/02/18 13:05 07/02/18 13:05 Laboratory Results 07/02/18 05:35 07/02/18 05:35 07/01/18 07/02/18 07/03/18 05:59 05:59 05:59 Intake Total 3773 500 Output Total 1640 1230 Balance 2133 -730 Physical Exam - Physical Exam General Appearance: alert, no apparent distress EENT: PERRL/EOMI, other (Nasal cannula in place at 2-3 L) Neck: normal inspection (No JVD) Respiratory: lungs clear (Anteriorly), decreased breath sounds (At bases), No rales, No rhonchi Cardiac/Chest: regular rate, rhythm, gallop (Soft gallop?), No systolic murmur Abdomen: normal bowel sounds, non-tender, soft Male Genitalia: other (Downs catheter in place, to be removed.) Skin: normal color, warm/dry Extremities: pedal edema (Trace) Neuro/Psych: no motor/sensory deficits, No cognition abnormalities ICD10 Worksheet Patient Problems: Problems Problem Status Onset chronic disease mgmt/transitional care Acute Acute coronary syndrome Acute STEMI (ST elevation myocardial infarction) Acute Dyspnea Acute
[2018-07-02] MEDS ORDERED: WARFARIN SODIUM 5 MG TAB PO ONE (19:00)
--- NOTE | 2018-07-02 19:31 | PDCARPN ---
Cardiology Progress Note Assessment/Plan: Assessment:1.status post recent anterior lateral and apical myocardial infarction with late presentation. The patient probably had an anterior [place] 7-10 days ago while on the train from [place]. He had a delayed presentation and finally presented for ongoing fatigue. He underwent successful balloon angioplasty and stent implantation to the LAD. He is currently on intraaortic balloon support on 1:1. The patient has been started on beta mitch, aldosterone antagonist to help reduce negative remodeling. He does have serologic evidence of heart failure on the basis of a BMP which was over 4000, his troponin continues to trend down. Plan to ween the patient off his intraaortic balloon pump and the heparin drip will be held. Removal of the Balloon pump is intended if the ween is tolerated. 2. Diabetes Mellitus will be treated under the care of the curator of manuscripts. 3. No evidence of apical thrombus on echo. Plan for full dose anticoagulation once the balloon pump has been removed. INTERIM SUMMARY: I SAW THE PATIENT YESTERDAY AND SPENT OVER 35 MINUTES OF BEDSIDE TIME IN THE PROCESS OF REMOVING THE PATIENT'S BALLOON PUMP. TODAY HE HAS BEEN DOWNGRADED TO TELE STATUS AND HAS NOT HAD DYSRHYTHMIA. WE PLAN TO START FULL DOSE ANTICOAGULATION FOR INDICATION OF ANTERIOR AND APICAL AKINESIS AND CONCERN FOR THE DEVELOPMENT OF AN APICAL THROMBUS. COUMADIN IS INDICATED FOR AT LEAST THE NEXT 6 MONTHS. Plan: ABOVE 06/30/18 19:05 06/30/18 19:16 07/02/18 19:05 Objective: Vital Signs (8 Hrs) Temp Pulse Resp BP Pulse Ox 07/02/18 18:20 120/64 07/02/18 18:18 92 07/02/18 17:36 89 L 07/02/18 16:00 36.9 C 70 20 105/58 L 90 L 07/02/18 13:05 36.7 C 66 17 104/69 90 L 07/02/18 11:33 37.1 C 68 20 105/51 L 95 Intake/Output (24 Hrs) 07/01/18 07/02/18 07/03/18 05:59 05:59 05:59 Intake Total 3773 500 Output Total 1640 1230 200 Balance 2133 -730 -200 Intake: Oral (ml) 1250 500 IV Intake (ml) 1765 IV Infused (ml) 758 Heparin/Dextrose 500 ml @ 758 Per Protocol IV CONT ELINA Rx#:[id number] Output: Urine (ml) 1640 1230 200 Catheter 1640 1230 Urinal 200 Other: Weight 82.9 kg Intake Quantity Yes Sufficient Number of Stools Catheter 0 Result Diagrams: 07/02/18 05:35 07/02/18 05:35 - Physical Exam Constitutional: no apparent distress Eyes: EOMI, anicteric sclera Ears, Nose, Mouth, Throat: moist mucous membranes Cardiovascular: regular rate and rhythm, systolic murmur Respiratory: clear to auscultate bilat Gastrointestinal: normoactive bowel sounds Neurologic: AAOx3, CN II-XII grossly intact Psychiatric: cooperative, interactive ICD10 Worksheet Patient Problems: Problems Problem Status Onset Acute coronary syndrome Acute Dyspnea Acute STEMI (ST elevation myocardial infarction) Acute chronic disease mgmt/transitional care Acute
[2018-07-02] MEDS: INSULIN GLARGINE 100 UNITS/ML UNIT SC SCH (20:39)
[2018-07-03 04:31] LABS: INR 1.13 (0.83-1.16); PROTIME(PATIENT) 14.7 SEC (12.0-15.0)
[2018-07-03] MEDS: INSULIN GLARGINE 100 UNITS/ML SYRINGE SC SCH (08:35)
[2018-07-03] MEDS: INSULIN LISPRO 100 UNIT/ML SC SCH ×4 (08:38→18:35)
[2018-07-03] MEDS: LISINOPRIL 5 MG TAB PO SCH (08:39)
[2018-07-03] MEDS: ROSUVASTATIN CALCIUM 20 MG TAB PO SCH (08:39)
[2018-07-03] MEDS: ASPIRIN EC 325 MG TAB PO SCH (08:39)
[2018-07-03] MEDS: PRASUGREL HCL 10 MG TAB PO SCH (08:40)
[2018-07-03] MEDS: CARVEDILOL 3.125 MG TAB PO SCH ×2 (08:40→16:45)
[2018-07-03] MEDS: AMOX/CLAVULANATE 500/125 MG TAB PO SCH ×3 (10:47→20:55)
[2018-07-03] MEDS: ENOXAPARIN 80 MG/0.8 ML SYR SC SCH ×2 (10:47→21:00)
[2018-07-03] MEDS ORDERED: ATORVASTATIN CALCIUM 40 MG TAB PO SCH (11:00)
--- NOTE | 2018-07-03 11:23 | PDCARPN ---
Cardiology Progress Note Assessment/Plan: Assessment:1.status post recent anterior lateral and apical myocardial infarction with late presentation. The patient probably had an anterior [place] 7-10 days ago while on the train from [place]. He had a delayed presentation and finally presented for ongoing fatigue. He underwent successful balloon angioplasty and stent implantation to the LAD. He is currently on intraaortic balloon support on 1:1. The patient has been started on beta mitch, aldosterone antagonist to help reduce negative remodeling. He does have serologic evidence of heart failure on the basis of a BMP which was over 4000, his troponin continues to trend down. Plan to ween the patient off his intraaortic balloon pump and the heparin drip will be held. Removal of the Balloon pump is intended if the ween is tolerated. 2. Diabetes Mellitus will be treated under the care of the geriatric assistant. 3. No evidence of apical thrombus on echo. Plan for full dose anticoagulation once the balloon pump has been removed. INTERIM SUMMARY: I SAW THE PATIENT YESTERDAY AND SPENT OVER 35 MINUTES OF BEDSIDE TIME IN THE PROCESS OF REMOVING THE PATIENT'S BALLOON PUMP. TODAY HE HAS BEEN DOWNGRADED TO TELE STATUS AND HAS NOT HAD DYSRHYTHMIA. WE PLAN TO START FULL DOSE ANTICOAGULATION FOR INDICATION OF ANTERIOR AND APICAL AKINESIS AND CONCERN FOR THE DEVELOPMENT OF AN APICAL THROMBUS. COUMADIN IS INDICATED FOR AT LEAST THE NEXT 6 MONTHS. 07/03/2018 The patient is walking in the hallway without pain in the chest or undue shortness of breath. The pt will be started on Lovenox in full dose today. I want to switch him back to Atorvastatin in preparation for possible discharge tomorrow. The patient will need to be enrolled in cardiac rehab. He will need to be enrolled in Coumadin Clinic. He is somewhat hyponatremic on todays labs and those will need to be repeated. Plan: ABOVE 06/30/18 19:05 06/30/18 19:16 07/02/18 19:05 07/03/18 11:20 07/03/18 11:23 Reviewed/Discussed With: family, hospitalist, multidisciplinary team Time Spent with Patient: greater than 25 minutes Time Spent with Patient: Greater than 25 minutes spent on this patients care, greater than 50% of time spent counseling, educating, and coordinating care regarding the above mentioned plan. Objective: Vital Signs (8 Hrs) Temp Pulse Resp BP Pulse Ox 07/03/18 07:30 36.7 C 73 18 109/59 L 91 L 07/03/18 04:00 36.2 C 73 21 H 124/62 H 94 Intake/Output (24 Hrs) 07/02/18 07/03/18 07/04/18 05:59 05:59 05:59 Intake Total 500 175 Output Total 1230 200 Balance -730 -25 Intake: Oral (ml) 500 175 Output: Urine (ml) 1230 200 Catheter 1230 Urinal 200 Other: Intake Quantity Yes Sufficient Number of Stools Catheter 0 Result Diagrams: 07/02/18 05:35 07/03/18 03:35 Telemetry: sinus macrina with occasional PVCs. - Physical Exam Constitutional: WDWN Eyes: PERRL, EOMI, anicteric sclera Ears, Nose, Mouth, Throat: moist mucous membranes Cardiovascular: regular rate and rhythm, no murmurs, no rubs Respiratory: clear to auscultate bilat, no crackles, no wheezes Gastrointestinal: normoactive bowel sounds Musculoskeletal: other (groin site checked and has minimal bruising and no hematoma...) ICD10 Worksheet Patient Problems: Problems Problem Status Onset Acute coronary syndrome Acute Dyspnea Acute STEMI (ST elevation myocardial infarction) Acute chronic disease mgmt/transitional care Acute
[2018-07-03] MEDS ORDERED: INSULIN ASPART 4 UNIT SC SCH (12:00)
[2018-07-03] MEDS: WARFARIN SODIUM 5 MG TAB PO SCH (16:44)
[2018-07-03] MEDS ORDERED: INSULIN ASPART 9 UNIT SC SCH (17:00)
[2018-07-03] MEDS: INSULIN GLARGINE 100 UNITS/ML UNIT SC SCH (21:01)
[2018-07-04 03:51] LABS: INR 1.19 (0.83-1.16); PROTIME(PATIENT) 15.3 SEC (12.0-15.0)
[2018-07-04] MEDS ORDERED: INSULIN ASPART 11 UNIT SQ SCH (07:00)
[2018-07-04] MEDS: INSULIN LISPRO 100 UNIT/ML SC SCH ×2 (07:12→08:14)
[2018-07-04] MEDS: INSULIN GLARGINE 100 UNITS/ML SYRINGE SC SCH (08:13)
[2018-07-04] MEDS: PRASUGREL HCL 10 MG TAB PO SCH (08:17)
[2018-07-04] MEDS: ASPIRIN EC 325 MG TAB PO SCH (08:17)
[2018-07-04] MEDS: ENOXAPARIN 80 MG/0.8 ML SYR SC SCH (08:18)
[2018-07-04] MEDS: CARVEDILOL 3.125 MG TAB PO SCH (08:18)
[2018-07-04] MEDS: LISINOPRIL 5 MG TAB PO SCH (08:19)
[2018-07-04] MEDS ORDERED: ATORVASTATIN CALCIUM 40 MG TAB PO SCH (09:00)
--- NOTE | 2018-07-04 11:25 | PDHOMEO2F ---
Home Oxygen Face to Face Home Orders: I certify that a physician or a nurse practitioner or physician's law office assistant has had a [id number] encounter with this patient on the date of this order due to the diagnosis listed, which relates to the primary reason the patient requires home oxygen. Alternative treatments have been tried, or considered, and deemed ineffective. It is anticipated that supplemental oxygen will result in improvement with treatment. Home oxygen qualifying diagnosis: hypoxemia Home oxygen secondary diagnosis: heart failure, acute systolic SpO2 on room air (%): 74 PaO2 on room air (mmHG): 59 Frequency of home oxygen needed: during sleep Home oxygen liters per minute: 2 Home oxygen delivery device: nasal cannula Concentrator: Yes E-tanks for mobility and back up: No I certify that, based on these findings, the home oxygen is medically necessary for this patient for the following length of time. I think the time is indeterminate and likely to be lifelong as the patient likely has chronic nocturnal hypoxemia that predated his heart attack. Length of time home oxygen needed: 3 months (This should give adequate time for an outpatient assessment for central apnea to take place.) Home Oxygen Comment: Patient will need outpatient sleep evaluation for central apnea. the patient has had a heart attack and has relatively poor LV function and also has serologic evidence of heart failure with elevated BNP
[2018-07-04 11:37] VITALS: BP 100/61
--- NOTE | 2018-07-04 12:25 | ASDISCHSUM ---
Discharge Information Plan Status:Home with No Needs Medically Cleared to Leave:07/04/2018 Discharge Date:07/04/2018 CM D/C Disposition:Home, Routine, Self-Care ADT D/C Disposition:Home, Routine, Self-Care Projected Discharge Date:07/04/2018 Transportation at D/C:Family Discharge Delay Reason: Follow-Up Date:07/04/2018 Discharge Slot: Final Diagnosis:Acute [place] Placement Information Patient Contact Information Contact Name:GISELL Relationship: Address:[address] City:[place] Alternate Phone: State/Zip Code:[place] [address] Email: Financial Information Financial Class:Medicare Primary Plan Desc:MEDICARE INPATIENT Primary Plan Number:[id number] Secondary Plan Desc:[facility] Secondary Plan Number:[id number] Assessment Information LACE LACE Length of stay for Answers: 3 days current admission Acuity / Level of Answers: Yes Care: Did the patient have an inpatient admission? Comorbidities - select Answers: Coronary Artery Disease all that apply Diabetes (uncontrolled or controlled) Previous myocardial infarction Other Notes: Hyperlipidemia # of Emergency department Answers: 1-2 visits in the last 6 months Score: 12 Date Signed: 07/04/2018 12:22 PM Electronically Signed By:Peggy Case RN [facility] Progress Note CM Note CM Note Notes: 72yr old male admitted for an acute [place]. He has a Hx of ACS, CAD, Dyspnea, HTN, DM-1, forner smoker. Patient went to the label stamper found to have occluded LAD . Patient was stented and on the bolloon pump. Lives with his . QUIN to follow, may not have discharge needs. Date Signed: 06/30/2018 03:40 PM Electronically Signed By:Elida Nevarez LCSW [facility] CM Progress Note CM Note CM Note Notes: No therapies ordered for patient. Patient to d/c independently. CM available should d/c needs arise. Date Signed: 07/02/2018 11:33 AM Electronically Signed By:Vidhya Ward LCSW CAGE Questionnaire CAGE Do you feel you ought to Answers: Yes cut down on your drinking or drug use? Do people annoy you by Answers: No criticizing your drinking or drug use? Do you feel guilty about Answers: No your drinking or drug use? Do you drink or use drugs Answers: No first thing in the morning ([employer] Vice President)? Additional Comments Pt has 3 drinks per day. Each drink is 1 jigger of whiskey or gin. declined resources, plans to cut back. Date Signed: 07/04/2018 12:22 PM Electronically Signed By:Peggy Case RN Case Management Discharge Plan Note Case Management Discharge Discharge Order Complete? Answers: Yes Patient to Obtain Answers: Independently Medications Transportation Arranged Answers: Family/Friends Family Notified Answers: Yes Notes: in room Discharge Comments Notes: 07/04/2018 Case Management Note Met w/pt and . CAGE completed. IM signed. There are no case management d/c needs identified. Pt to discharge independent with follow up as directed. Date Signed: 07/04/2018 12:24 PM Electronically Signed By:Peggy Case RN Intervention Information Intervention Type:*RAHMAN-Signed Date of Service:06/30/2018 11:18 AM Patient Type:Observation Staff Member:Eloise Thompson Hours: Discipline: Severity: Comment: Intervention Type:*IM-Signed Date of Service:07/04/2018 12:24 PM Patient Type:Inpatient Staff Member:ANISH Case, Peggy Hours: Discipline: Severity: Comment:
[2018-07-04] MEDS: WARFARIN SODIUM 5 MG TAB PO SCH (12:38)
[2018-07-04] MEDS ORDERED: AMOX/CLAVULANATE 500/125 MG TAB PO SCH (14:00)
== END 2018-07-04 13:33 | disposition home or self-care (01) | DRG 271 ==
LOC: FCATH 13:44 → F2N 15:38 → OBSVTOIN 06-30 14:46 → F2W 07-02 12:52
PROVIDERS: ADMIT Internal Medicine Cardiovascular Disease; ATTEND Internal Medicine Cardiovascular Disease
DX: I21.3 ST elevation (STEMI) myocardial infarction of unspecified site (principal); E87.1 Hypo-osmolality and hyponatremia; E87.5 Hyperkalemia; I25.10 Atherosclerotic heart disease of native coronary artery without angina pectoris; E78.5 Hyperlipidemia, unspecified; E11.9 Type 2 diabetes mellitus without complications; I10 Essential (primary) hypertension; Z23 Encounter for immunization
CPT/HCPCS: 84484-PO; 85520-90; C1725; C1769; C1874; C1887; C9600; G0378; J0130; J0583; J1200; J1644; J1650; J1815; J2250; J2405; J2930; J3010; Q9957; Q9967

== ENCOUNTER 2018-07-14 11:11 | Emergency (ER) | payer OTHER, BC ==
[2018-07-14] MEDS ORDERED: TRANEXAMIC ACID 1,000 MG/10 ML VIAL TP ONE (11:51)
[2018-07-14 12:12] LABS: PLATELET COUNT 262 10^3/uL (150-400)
[2018-07-14 12:20] LABS: INR 2.37 (0.83-1.16); PROTIME(PATIENT) 25.9 SEC (12.0-15.0)
--- NOTE | 2018-07-14 12:25 | EDPHY ---
H & P Time Seen by Provider: 07/14/18 11:50 HPI/ROS: CHIEF COMPLAINT: Recurrent epistaxis HISTORY OF PRESENT ILLNESS: 72-year-old male history of nighttime home oxygen, recent [place] with initiation of Coumadin therapy, in the ER complaining of recurrent epistaxis for the past 2 days. No digital trauma. No dizziness. No headache. No chest pain. No dyspnea. PRIMARY CARE PROVIDER: REVIEW OF SYSTEMS: 10 systems reviewed and are negative with exception of illness mentioned in the history of present illness PHYSICAL EXAM (Prior to examination, patient consented to physical exam, hands were washed and my usual and customary physical exam procedures followed) 1) GENERAL: Well-developed, well-nourished, alert and oriented. Appears to be in no acute distress. 2) HEAD: Normocephalic 3) HEENT: sclera anicteric. Nasal clip in place taken down revealing area of friability with no active bleeding right Kiesselbach's plexus. 4) LUNGS: Breathing comfortably. Smoking Status: Never smoked Constitutional: Initial Vital Signs Temperature (C) 36.4 C 07/14/18 11:15 Heart Rate 71 07/14/18 11:15 Respiratory Rate 18 07/14/18 11:15 Blood Pressure 110/56 L 07/14/18 11:15 O2 Sat (%) 98 07/14/18 11:15 O2 Delivery Mode Room Air Allergies/Adverse Reactions: Sulfa (Sulfonamide Antibiotics) Allergy (Verified 07/14/18 11:14) tetracycline [Tetracycline] Allergy (Verified 07/14/18 11:14) contrast Allergy (Uncoded 11/16/13 09:02) Home Medications: Medication Instructions Recorded Atorvastatin Calcium [Lipitor 40 40 mg PO DAILY 06/29/18 mg (*)] Insulin Glargine [Lantus] 3 unit SC HS 06/29/18 Insulin Glargine [Lantus] 5 unit SC DAILY 06/29/18 Insulin Aspart [novoLOG] 2 - 20 unit SC AC 07/03/18 Aspirin EC [Aspirin EC 325 mg (*)] 325 mg PO DAILY tab 07/04/18 Carvedilol [Coreg (*)] 3.125 mg PO BIDMEAL #120 tab 07/04/18 Enoxaparin [Lovenox 80 MG (*)] 80 mg SC BID #14 syr 07/04/18 Eplerenone [Inspra 25 MG (*)] 25 mg PO DAILY #90 tab 07/04/18 Lisinopril [Zestril 5 mg (*)] 5 mg PO DAILY #90 tab 07/04/18 Prasugrel HCl [Effient 10mg (*)] 10 mg PO DAILY #90 tab 07/04/18 Warfarin Sodium [Coumadin 5MG (*)] 5 mg PO DAILY16 #60 tab 07/04/18 MDM/Departure - [facility] Procedures: Procedure: Epistaxis control. Indication: Recurrent epistaxis, on Coumadin Risks, benefits, alternatives discussed with patient and consent obtained. The right nostril was packed with TXA. Patient was observed for a period of time. The packing was removed and patient is hemostatic. Medications Given: Discontinued Medications Tranexamic Acid (Cyklokapron) 500 mg TP EDNOW ONE Stop: 07/14/18 11:52 Last Admin: 07/14/18 12:12 Dose: 500 mg ED Course/Re-evaluation: 1:06 p.m.: Re-evaluation. TXA soaked pledget removed. Has been in place for approximately 30 min. Hemostasis at this time. Discussed with patient that there is no guarantee that he will not have really bleeding. I offered to place a nasal pledgets however he declines this. Usual customary epistaxis precautions and instructions provided. He feels comfortable being discharged. I saw this patient independently based on established practice protocols. Care of patient under supervision of secondary supervising physician Dr Ramos . 1:20 p.m.: Patient was being discharged in walking out of the ER he had recurrence of bleeding. Subsequently, rapid rhino nasal packing placed by myself using usual and customary technique resulting in hemostasis. Today is Thursday. He will need follow-up with [facility] on Thursday. - Depart Disposition: Home, Routine, Self-Care Clinical Impression: Epistaxis, recurrent Condition: Good Instructions: Nosebleed (ED) Additional Instructions: If you develop further episodes of nosebleed, place direct pressure for 20 minutes. If the bleeding continues, seek medical attention. Do not blow your nose, do not pick your nose, avoid bearing down. Referrals: Robert Gaytan MD [Medical Doctor] - 07/16/18 (followup with Dr Gaytan or Thelma on Thursday)
[2018-07-14 13:09] VITALS: BP 138/73
== END 2018-07-14 13:51 | disposition home or self-care (01) ==
PROC: 2Y41X5Z Packing of Nasal Region using Packing Material (ICD-10-PCS; principal; 2018-07-14)
DX: R04.0 Epistaxis (principal); Z79.01 Long term (current) use of anticoagulants

== ENCOUNTER → 2018-08-16 | Outpatient (CLI) | payer OTHER, BC | LOC: BHFA 10:45 | PROVIDERS: ATTEND Internal Medicine Cardiovascular Disease | DX: I25.10 Atherosclerotic heart disease of native coronary artery without angina pectoris (principal); I42.9 Cardiomyopathy, unspecified ==

== ENCOUNTER → 2019-01-04 | Outpatient (CLI) | payer OTHER, BC | LOC: BHFA 10:00 | PROVIDERS: ATTEND Internal Medicine Cardiovascular Disease | DX: I25.10 Atherosclerotic heart disease of native coronary artery without angina pectoris (principal) ==